=== PATIENT | male | born 1995 | race Caucasian/White ===

== ENCOUNTER 2024-05-01 08:58 | Outpatient (CLI) | payer OTHER, SELFPAY | END 2024-05-01 08:59 | disposition home or self-care (01) | PROVIDERS: PCP Family Medicine; Visit Provider Family Medicine | DX: I10 Essential (primary) hypertension (principal); Z13.220 Encounter for screening for lipoid disorders | CPT/HCPCS: 80061; 80076 ==

== ENCOUNTER 2024-06-05 19:36 | Outpatient (CLI) | payer OTHER, SELFPAY ==
--- NOTE | 2024-06-19 08:52 | W.PM.SLEEP ---
Sleep Study Details Details Interpreting Provider: Farhat Date of Sleep Study: 06/05/24 Sleep Study Details: STUDY TYPE:? Home unattended ? BMI:? 33.4 ORDERING PROVIDER:Gauri Dougherty INDICATION:? Concern about sleep apnea ? SLEEP SUMMARY:? 471 minutes monitor RESPIRATORY SUMMARY:? AHI 17, left lateral 9.6, right lateral 14, supine 33.9 Low oxygen 73 2.6% of study oxygen less than 90% Snoring 67% PERIODIC LIMB MOVEMENTS OF SLEEP:? Not recorded CARDIAC:? Range 62-140, mean 81.1 IMPRESSION:? Moderate obstructive sleep apnea with supine position dependency but apnea present in all positions. Some tachycardia was noted with a rate as high as 140 beats per minute during sleep RECOMMENDATION: Further cardiac evaluation may be indicated. Regarding the sleep apnea treatment options include dental appliance or AutoSet CPAP.
== END 2024-06-05 19:37 | disposition home or self-care (01) ==
LOC: SLEEP 19:36
PROVIDERS: PCP Family Medicine; Visit Provider Family Medicine
DX: G47.33 Obstructive sleep apnea (adult) (pediatric) (principal)
CPT/HCPCS: 95806

== ENCOUNTER 2024-08-20 08:52 | Outpatient (CLI) | payer OTHER, SELFPAY | END 2024-08-20 08:53 | disposition home or self-care (01) | LOC: NFLDREF 08-21 02:47 | PROVIDERS: PCP Family Medicine; Referring Provider Family Medicine; Visit Provider Family Medicine | DX: I10 Essential (primary) hypertension (principal); E78.00 Pure hypercholesterolemia, unspecified | CPT/HCPCS: 80053; 80061 ==

== ENCOUNTER 2024-11-16 07:57 | Outpatient (CLI) | payer OTHER, SELFPAY | END 2024-11-16 07:58 | disposition home or self-care (01) | LOC: NFLDREF 11-21 20:20 | PROVIDERS: PCP Family Medicine; Referring Provider Family Medicine; Visit Provider Family Medicine | DX: E78.00 Pure hypercholesterolemia, unspecified (principal); E78.1 Pure hyperglyceridemia | CPT/HCPCS: 80061; 80076 ==

== ENCOUNTER 2025-07-30 09:15 | Outpatient (CLI) | payer OTHER, SELFPAY | END 2025-07-30 09:16 | disposition home or self-care (01) | PROVIDERS: PCP Family Medicine; Visit Provider Family Medicine | DX: Z00.00 Encounter for general adult medical examination without abnormal findings (principal); I10 Essential (primary) hypertension; G62.9 Polyneuropathy, unspecified; E10.9 Type 1 diabetes mellitus without complications; E78.00 Pure hypercholesterolemia, unspecified; Z78.9 Other specified health status | CPT/HCPCS: 80053; 80061; 82306; 82607; 84443 ==